=== PATIENT | female | born 1965 | race Caucasian/White ===

== ENCOUNTER → 2016-07-25 | Outpatient (CLI) | payer OTHER ==
--- NOTE | 2016-07-31 08:09 | SLEEPCENT ---
DATE OF PROCEDURE: 07/25/2016 REQUESTING PROVIDER: Fartun Antunez NP INTERPRETATION: Nocturnal polysomnography was performed due to concern for obstructive sleep apnea syndrome in this patient with a history of sleep fragmentation and nonrestorative sleep. 7 hours and 11 minutes of data were reviewed. There were 297 minutes of sleep identified. Sleep latency was prolonged at 34 minutes. Rapid eye movement (REM) latency was prolonged at 125 minutes. Sleep architecture was fair with three REM periods appreciated. Overall sleep efficiency was 71.3%. There was a mild reduction in REM time. The patient's electrocardiogram (EKG) showed a sinus rhythm with an average heart rate of 70 beats per minute. Electroencephalogram (EEG) showed reasonably normal waveforms for awake and sleep. There were 98 respiratory events identified of 10 seconds in duration or greater for an apnea-hypopnea index of 19.8. The events were primarily obstructive, not exclusive to sleep stage, though REM clustering was appreciated and not exclusive to sleep position. Arousals from respiratory events occurred 9.9 times per hour. There was some limb activity. Limb movement arousal index was 4.8. The remaining measures of sleep physiology were normal. IMPRESSION: Obstructive sleep apnea syndrome (G47.33). Apnea-hypopnea index of 19.8. RECOMMENDATIONS: The patient should be encouraged to return to the sleep disorder center for pressure therapy. In the interim, alcohol and sedative avoidance should be practiced and caution exercised during the operation of motor vehicles.
== END | disposition home or self-care (01) ==
LOC: M SLEEP 19:32
PROVIDERS: ATTEND Nurse Practitioner Adult Health
DX: G47.33 Obstructive sleep apnea (adult) (pediatric) (principal)

== ENCOUNTER → 2016-08-13 | Outpatient (CLI) | payer OTHER, SELFPAY ==
[~2016-08-13] MED LIST: METHACHOLINE KIT (J7674) INH ONE
--- NOTE | 2016-08-13 12:04 | PFTRPT ---
INTERPRETATION: The study was of excellent technical quality. Under protocol, methacholine was administered. At a dose of 10 mg (63.875 CDUs), a 44% decline in the FEV1 was noted. The PC20 of 3.09 is felt to be significant. Flow rates did return to baseline post bronchodilator administration. IMPRESSION: Positive methacholine challenge study. MTDD
== END ==
LOC: M CARPUL 07:39
PROVIDERS: ATTEND Nurse Practitioner Adult Health
DX: R05 Cough (principal); R94.2 Abnormal results of pulmonary function studies

== ENCOUNTER → 2016-11-19 | Outpatient (CLI) | payer OTHER ==
--- NOTE | 2016-11-19 18:11 | REP ---
BILATERAL MAMMOGRAM WITH DIAGNOSTIC MAMMOGRAM LEFT BREAST AND LEFT BREAST ULTRASOUND: Bilateral mammogram is performed in the MLO and CC projections. Additional spot compression views are obtained in the region of the upper outer quadrant of the left breast in this patient with a history of a lump with pain. The area is marked on the skin with a triangular marker. There are no prior mammograms for comparison. There is moderately dense fibroglandular tissue present bilaterally in a relatively symmetrical pattern. I see no mammographic evidence of a mass or significant architectural distortion. No clustered microcalcifications are seen. Real-time sonographic evaluation of the upper outer quadrant of the left breast is performed. Dense fibroglandular tissue is seen without evidence of a cystic or solid mass sonographically. IMPRESSION: ACR 2 benign. Moderately dense breast parenchyma bilaterally. There is no mammographic or sonographic evidence of a mass at the site the reported palpable abnormality in the upper outer quadrant of the left breast. Clinical correlation and followup recommended. A negative mammogram and ultrasound should not deter biopsy if there is a clinically suspicious palpable mass present. Recommend followup mammogram in one year. BI-RADS/ACR category 2 mammogram. Benign finding(s). Routine annual screening mammography (for women over age 40). This mammogram was interpreted with the aid of an FDA-approved computer-aided detection system. The patient states she/he had a clinical breast exam in 11/2016. The patient letter being requested is M2. Signed by Terrell Sow MD 11/20/2016 07:42 P
== END ==
LOC: M RAD 13:27
PROVIDERS: ATTEND Family Medicine
DX: N63 Unspecified lump in breast (principal)
CPT/HCPCS: 76642; G0204

== ENCOUNTER 2016-12-10 18:33 | Inpatient (IN) | payer OTHER ==
[~2016-12-10] VITALS: Ht 160 cm; Wt 94.9 kg
[2016-12-10 20:44] LABS: MEAN CORPUSCULAR HEMOGLOBIN 31.7 pg (27.0-33.0); MEAN CORPUSCULAR HGB CONC 33.1 g/dl (32.0-36.5); MEAN CORPUSCULAR VOLUME 95.9 fl (80.0-96.0); RED CELL DISTRIBUTION WIDTH 12.8 % (11.5-14.5); WHITE BLOOD COUNT 7.8 K/mm3 (4.0-10.0)
[2016-12-10 21:04] LABS: METHADONE URINE NEGATIVE (NEGATIVE)
[2016-12-10 21:14] LABS: ALBUMIN 3.7 GM/DL (3.2-5.2); ALBUMIN/GLOBULIN RATIO 0.95 (1.00-1.93); ALKALINE PHOSPHATASE 95 U/L (45-117); ALT/SGPT 26 U/L (12-78); ANION GAP 7 MEQ/L (8-16); AST/SGOT 16 U/L (15-37); BILIRUBIN,DIRECT 0.1 MG/DL (0.0-0.2); BILIRUBIN,TOTAL 0.5 MG/DL (0.2-1.0); BLOOD UREA NITROGEN 8 MG/DL (7-18); CALCIUM LEVEL 8.4 MG/DL (8.5-10.1); CARBON DIOXIDE LEVEL 27 MEQ/L (21-32); CHLORIDE LEVEL 105 MEQ/L (98-107); CREATININE FOR GFR 0.81 MG/DL (0.55-1.02); GLOMERULAR FILTRATION RATE > 60.0 (>51); GLUCOSE, FASTING 111 MG/DL (70-105); POTASSIUM SERUM 4.1 MEQ/L (3.5-5.1); SODIUM LEVEL 139 MEQ/L (136-145); TOTAL PROTEIN 7.6 GM/DL (6.4-8.2)
[2016-12-10] MEDS ORDERED: ALBU17IN INH (21:28)
[2016-12-11] MEDS ORDERED: MOM 30ML SUSPENSION UDC PO PRN
[2016-12-11] MEDS ORDERED: MAALOX 30 ML SUSP *UDC PO PRN
[2016-12-11] MEDS ORDERED: traZODone 50 MG TAB PO PRN
[2016-12-11 01:20] VITALS: BP 172/95
[2016-12-11 07:11] VITALS: BP 116/82
[2016-12-11] MEDS ORDERED: chlordiazePOXIDE 25 MG CAP PO PRN (15:45)
[2016-12-11] MEDS: VENLAFAXINE **XR** 37.5 MG CAPSULE PO SCH (16:19)
[2016-12-11] MEDS: ALBUTEROL 90 MCG/ACT 8GM HFA INHALER INH PRN (20:28)
[2016-12-11] MEDS: traZODone 100 MG TAB PO SCH (21:40)
[2016-12-11] MEDS ORDERED: ONDANSETRON 4 MG ORAL DISINTEGRATING TAB (S0181) SL PRN (22:15)
[2016-12-12 06:25] VITALS: BP 112/62
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
[2016-12-12] MEDS: VENLAFAXINE **XR** 37.5 MG CAPSULE PO SCH (10:06)
--- NOTE | 2016-12-12 10:10 | HPE ---
DATE OF ADMISSION: 12/10/2016 HISTORY OF PRESENT ILLNESS: Please refer to psychiatric history and evaluation for further details on this admission. This examination and history is intended for medical issues, which may need treatment, followup or consultation on this 51-year-old female. ALLERGIES: None. PRIMARY CARE PROVIDER: Dr. Oro SOCIAL HISTORY: She is . EtOH: She states that she has drank none since July and then the last three days she started drinking and having stress over rent, job, work, her landlord. Smokes none. Recreational drug use is none. PAST MEDICAL HISTORY: Asthma. PAST SURGICAL HISTORY: Three sections, eyelid surgery, right scleroplasty, right cornea transplant, LASIK PRK right eye, right cataract removal. HOME MEDICATIONS: - albuterol - Ventolin HFA two puffs by mouth four times a day as needed for shortness of breath or wheeze LABORATORY DATA: CBC normal. Electrolytes were normal. BUN and creatinine were 8 and 0.81, nonfasting glucose 111, calcium 8.4, ETOH was 0.082. REVIEW OF SYSTEMS: Ten-systems review was done. The patient was complaining of some slight nausea after starting a medication earlier today. No vomiting. Eating and drinking without difficulty. She states that she felt a little wheezy earlier. She took albuterol inhaler and is improved. No other complaints. PHYSICAL EXAMINATION: GENERAL: 51-year-old cooperative female in no acute distress. Height 63 inches , weight 94.9 kg, Body Mass Index (BMI) 37.1, blood pressure 116/82, pulse 85, respirations 16, temperature 98. The patient is alert and oriented times three. HEENT: Pupils are equal and reactive to light. Extraocular muscles intact. Sclerae clear. Conjunctivae normal. No facial asymmetry. Pharynx, gums and tongue pink and moist. Tongue is midline. NECK: Supple without lymphadenopathy, thyromegaly or goiter. CHEST: Clear to auscultation without wheeze or retraction. HEART: Regular. ABDOMEN: Benign. Bowel sounds positive. GENITOURINARY/RECTAL: Not done. EXTREMITIES: Equal strength, full range of motion. No clubbing, cyanosis, and edema. Peripheral pulses equal and palpable bilaterally. SKIN: Warm and dry. IMPRESSION/PLAN: 1. Psychiatric plan per psychiatry. 2. History of asthma. No current wheezing. Stated earlier, she used the albuterol inhaler with good response. 3. Complained of nausea. We will order Zofran 4 mg by mouth sublingually every 6 hours as needed for nausea. Notify staff if the nausea persists or if vomiting occurs. The patient is to notify staff if she has any wheezing or further shortness of breath. The patient verbalized agreement and understanding. CHRIS
--- NOTE | 2016-12-12 16:18 | IPN ---
DATE: 12/12/2016 51-year-old female admitted for depression and suicidal ideation. Patient had significant stressors, was very labile, tearful, with sad, restricted facial expression and psychomotor retardation. SUBJECTIVE: "I don't want to get out of my room." OBJECTIVE: No major changes from yesterday. Patient continues very depressed, labile, tearful. Patient says that it is very stressful to be in the unit. Patient does not feel like getting out of the room interacting with other patients or participating in group psychotherapy. I discussed the plan with the patient. MENTAL STATUS EXAMINATION: Patient is dressed in [facility]. Patient is anxious, depressed, tearful, with very poor eye contact. Affect is labile. No evidence of delusions or hallucinations. Memory, attention, and concentration are impaired. Patient reports suicidal ideation. Patient states that she was thinking about tampering with the electric of the speaker but then she was able to contract for safety and tells me if any of the suicidal thoughts return she will be calling staff and tell me. Insight and judgment is poor. ASSESSMENT: 1. Depression. 2. Suicidal ideation. 3. Alcohol abuse. PLAN: 1. Trazodone 200 mg by mouth nightly. 2. Increase Effexor to 75 mg by mouth every morning. 3. Continue Librium as needed. Patient has not needed this medication. 4. Continue medication management, individual and group therapy.
[2016-12-12] MEDS: traZODone 100 MG TAB PO SCH (22:37)
[2016-12-12] MEDS: ALBUTEROL 90 MCG/ACT 8GM HFA INHALER INH PRN (22:38)
[2016-12-13 06:16] VITALS: BP 140/65
[2016-12-13] MEDS: VENLAFAXINE **XR** 75MG CAPSULE PO SCH (09:09)
[2016-12-13] MEDS: ACETAMINOPHEN TAB 650MG DOSE (2X325MG) PO PRN ×2 (09:11→20:59)
[2016-12-13 18:00] VITALS: BP 123/77
[2016-12-13] MEDS: ALBUTEROL 90 MCG/ACT 8GM HFA INHALER INH PRN (20:59)
[2016-12-13] MEDS: traZODone 100 MG TAB PO SCH (20:59)
--- NOTE | 2016-12-13 22:58 | IPN ---
DATE: 12/13/2016 51-year-old female admitted for depression and suicidal ideation. The patient had significant stressors and was very labile, tearful, sad, restricted facial expression and psychomotor retardation. SUBJECTIVE: "I could not sleep last night." OBJECTIVE: The patient continues very depressed, labile with sad, restricted facial expression. Psychomotor retardation. No interaction with other patients and staff. Has very poor appetite. She is staying in her room most of the time. The patient is able to contract for safety during the interview. MENTAL STATUS EXAMINATION: The patient is dressed in [facility]. The patient is depressed, anxious, tearful, labile with very poor eye contact. No delusions or hallucinations. Memory, attention, and concentration are fair. The patient reports intermittent suicidal ideation. Insight and judgment poor. ASSESSMENT: 1. Depression. 2. Suicidal ideation. 3. Alcohol abuse. PLAN: 1. Continue with trazodone 200 mg by mouth at night. 2. Start Librium 20 mg by mouth at night three times a day since the patient has a problem with alcohol and maybe has some hyperactivity that prevents her from staying asleep. The patient has not needed Librium as needed during the daily. 3. Continue Effexor XR 75 mg by mouth in the morning. 4. Continue medication management, individual and group therapy.
[2016-12-14] MEDS ORDERED: OLANZapine ORAL DISINTEGRATING TAB 5MG PO ONE (01:45)
[2016-12-14 06:35] VITALS: BP 124/62
[2016-12-14] MEDS: VENLAFAXINE **XR** 75MG CAPSULE PO SCH (08:57)
[2016-12-14 18:00] VITALS: BP 127/72
[2016-12-14] MEDS: ALBUTEROL 90 MCG/ACT 8GM HFA INHALER INH PRN (20:58)
[2016-12-14] MEDS: ACETAMINOPHEN TAB 650MG DOSE (2X325MG) PO PRN (20:58)
[2016-12-14] MEDS ORDERED: QUEtiapine FUMARATE 50 MG TAB PO SCH (21:00)
[2016-12-15 06:35] VITALS: BP 128/76
[2016-12-15] MEDS: VENLAFAXINE **XR** 75MG CAPSULE PO SCH (08:58)
[2016-12-15] MEDS: ACETAMINOPHEN TAB 650MG DOSE (2X325MG) PO PRN (09:00)
--- NOTE | 2016-12-15 14:57 | IPN ---
DATE: 12/14/2016 The patient states she is very depressed. Her mood is 10 out of 10 where the closer to 10 is the most depressed. She is feeling hopeless. She is denying that she is suicidal. She says she has never been this depressed. MENTAL STATUS EXAMINATION: She is alert and oriented times three. Eye contact is fair. Psychomotor activity is decreased. She looked as if she had just been crying. There is no formal thought disorder noted. Mood is very depressed. Affect full range and appropriate. She is not psychotic, suicidal or homicidal. Concentration is fair. Memory intact. DIAGNOSIS: Major depressive disorder, single episode, severe. TREATMENT PLAN: At this point, the patient is saying she could not sleep much last night. That was despite the fact that she took 200 mg of trazodone and she is already on Ativan 1 mg three times a day for anxiety and Librium 30 mg. The patient clarifies that she only drank for three days and so she does not seem to need any medications for withdrawal, so I will discontinue the Librium. We discussed that she needs to give the Effexor some more time for a clinical response and this may have be adjusted at some point. MARSHAD
[2016-12-15] MEDS ORDERED: QUEtiapine FUMARATE 25 MG TAB PO SCH (21:00)
--- NOTE | 2016-12-16 03:28 | IPN ---
DATE OF SERVICE: 12/15/2016 The patient today was lying in bed. She states that she continues to feel very depressed. She says she slept slightly better, about 4 hours, but this is still not baseline. She is denying suicidal ideations. MENTAL STATUS EXAMINATION: This patient is alert and oriented times three. Eye contact is fair. Psychomotor activity is decreased. She is verbally spontaneous. There is no formal thought disorder noted. Mood is very depressed. Affect is full range and appropriate. She is not psychotic, suicidal, homicidal. Concentration is fair. Memory is intact. Insight and judgment is poor. DIAGNOSES: 1. Major depressive disorder. 2. Rule out posttraumatic stress disorder. 3. Rule out alcohol use disorder. TREATMENT PLAN: At this point, the patient will continue to be monitored for continued resolution of suicidal ideations and for further stabilization of her mood. She continues to be very depressed and anxious. I will increase her Effexor XR to 112.5 mg daily. Also, for her complaint of ongoing insomnia, I would increase the Seroquel to 75 mg nightly.
[2016-12-16 06:52] VITALS: BP 120/69
[2016-12-16] MEDS: ALBUTEROL 90 MCG/ACT 8GM HFA INHALER INH PRN (08:30)
[2016-12-16] MEDS: VENLAFAXINE **XR** 75MG CAPSULE PO SCH (08:30)
[2016-12-16] MEDS: VENLAFAXINE **XR** 37.5 MG CAPSULE PO SCH (08:30)
--- NOTE | 2016-12-16 16:16 | IPN ---
DATE: 12/16/2016 VITAL SIGNS: Temperature 98.2, pulse 64, respirations 20, blood pressure 140/65. HISTORY OF PRESENT ILLNESS: 51-year-old white female living with her children. The patient was admitted on December 10 under the care of Dr. Jaquez. The patient was depressed at the time and suicidal. She was admitted on a 9.39 basis. The patient had been drinking episodically. The patient had been weepy. She has multiple stressors. She has a school bill of $89,000. She just got her MANISH. Her ex- who is major financial support just lost his job. She witnessed the dog from the neighbor upstairs falling out of the window and dying. That was traumatizing. She is being evicted from her apartment. The patient was placed on Effexor in gradually increasing doses. She tolerated the Effexor well was starting to improve. She is able to function better. She is not feeling as tired or fatigued. She feels more logical about the future. She feels more positive and motivated to spend time with her children, the sports and various hobbies. She has plans to move down to [facility] to get a job. She does have a history of chronic insomnia. She has a CPAP device, but does not want to use it on the unit. She was given Seroquel and trazodone here without any effect. The patient would like a sleeper. We discussed a trial on clonidine. Risks, benefit, profile thoroughly reviewed. She is warned about potential hypotensive side effects. The patient is satisfied with the Effexor. MENTAL STATUS EXAM: Affect apparently is brighter. She has good eye contact. The patient less depressed. Not voicing any suicidal thoughts or ideation. Insight and judgment appear reasonably good. She is not homicidal. She is not suicidal. No signs of organicity. Grooming and hygiene appears good. The patient not hearing voices. No signs of paranoia or thought disorder. ASSESSMENT: Major depression. Alcohol use disorder. PLAN: Add clonidine 0.1 mg by mouth at bedtime and followup in hospital milieu. Start to work on discharge planning.
[2016-12-16 18:00] VITALS: BP 125/69
[2016-12-16] MEDS ORDERED: cloNIDine 0.1 MG TAB PO SCH (21:00)
[2016-12-17 06:24] VITALS: BP 155/88
[2016-12-17] MEDS: ALBUTEROL 90 MCG/ACT 8GM HFA INHALER INH PRN ×2 (08:35→21:04)
[2016-12-17] MEDS: VENLAFAXINE **XR** 37.5 MG CAPSULE PO SCH (08:35)
[2016-12-17] MEDS: VENLAFAXINE **XR** 75MG CAPSULE PO SCH (08:35)
[2016-12-17] MEDS: LIDOCAINE 5% (LIDODERM) PATCH TD SCH (11:38)
--- NOTE | 2016-12-17 14:59 | REP ---
CERVICAL SPINE SERIES: Seven views. HISTORY: Pain. FINDINGS: Lateral views done in flexion/extension and neutral position show normal alignment. Vertebral body heights are preserved. No subluxation or instability is seen. There is degenerative narrowing in the C5-6 and C6-7 discs consistent with degenerative disc disease at these levels. There is discogenic spurring anteriorly and posteriorly at these two levels. These findings are unchanged from the comparison study of October 02, 2015. Open-mouth odontoid and AP views are unremarkable. Oblique images demonstrate mild uncovertebral spurring bilaterally at C5-6 and C6-7 which is also felt to be unchanged from the comparison radiographs. IMPRESSION: Degenerative spondylosis changes C5-6 and C6-7 radiographically stable from October 02, 2015 prior study. Signed by Allan Russell MD 12/17/2016 03:44 P
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
[2016-12-17 18:00] VITALS: BP 139/86
[2016-12-17] MEDS: **NOTE PATIENT COMMENT** MISC XX SCH (21:00)
[2016-12-17] MEDS: cloNIDine 0.2 MG TAB PO SCH (21:03)
[2016-12-17] MEDS: ACETAMINOPHEN TAB 650MG DOSE (2X325MG) PO PRN (21:48)
[2016-12-18 06:17] VITALS: BP 148/94
[2016-12-18] MEDS: ALBUTEROL 90 MCG/ACT 8GM HFA INHALER INH PRN (09:15)
[2016-12-18] MEDS: VENLAFAXINE **XR** 37.5 MG CAPSULE PO SCH (09:15)
[2016-12-18] MEDS: LIDOCAINE 5% (LIDODERM) PATCH TD SCH (09:15)
[2016-12-18] MEDS: VENLAFAXINE **XR** 75MG CAPSULE PO SCH (09:15)
[2016-12-18 18:00] VITALS: BP 130/65
[2016-12-18] MEDS: **NOTE PATIENT COMMENT** MISC XX SCH (20:06)
[2016-12-18 22:14] VITALS: BP 124/64
[2016-12-18] MEDS: cloNIDine 0.2 MG TAB PO SCH (22:14)
[2016-12-19 07:06] VITALS: BP 144/71
[2016-12-19] MEDS: VENLAFAXINE **XR** 75MG CAPSULE PO SCH (07:59)
[2016-12-19] MEDS: ALBUTEROL 90 MCG/ACT 8GM HFA INHALER INH PRN (08:00)
[2016-12-19] MEDS: VENLAFAXINE **XR** 37.5 MG CAPSULE PO SCH (08:00)
[2016-12-19] MEDS ORDERED: VENL150C43 PO (08:37)
[2016-12-19] MEDS ORDERED: CATA0.2T PO (08:37)
[2016-12-19] MEDS ORDERED: LIDO5TD TD (08:37)
[2016-12-19] MEDS: LIDOCAINE 5% (LIDODERM) PATCH TD SCH (08:49)
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
== END 2016-12-19 12:15 | disposition home or self-care (01) | DRG 751 ==
LOC: M ED 18:33 → M ED INP 23:50 → M PSY 12-11 01:13
PROVIDERS: ADMIT Psychiatry & Neurology Psychiatry; ATTEND Psychiatry & Neurology Psychiatry
DX: F33.1 Major depressive disorder, recurrent, moderate (principal); F41.9 Anxiety disorder, unspecified; F10.259 Alcohol dependence with alcohol-induced psychotic disorder, unspecified; F43.10 Post-traumatic stress disorder, unspecified; G47.00 Insomnia, unspecified; F10.239 Alcohol dependence with withdrawal, unspecified; J45.909 Unspecified asthma, uncomplicated; Z62.810 Personal history of physical and sexual abuse in childhood; Z62.811 Personal history of psychological abuse in childhood; Z91.410 Personal history of adult physical and sexual abuse; Z79.51 Long term (current) use of inhaled steroids; Z59.9 Problem related to housing and economic circumstances, unspecified

== ENCOUNTER → 2017-07-09 | Outpatient (REF) | payer OTHER ==
[2017-07-09 20:06] LABS: FREE T3 2.9 PG/ML (2.2-4.0); FREE T4 0.84 NG/DL (0.76-1.46)
== END ==
LOC: M LAB REF 19:04
DX: E07.9 Disorder of thyroid, unspecified (principal)

== ENCOUNTER 2018-04-21 21:26 | Inpatient (IN) | payer OTHER, MEDICAID, SELFPAY ==
[2018-04-21 22:02] LABS: BASO # 0.1 10^3/uL (0.0-0.2); BASO % 0.6 % (0.0-1.0); EOS # 0.1 10^3/uL (0.0-0.50); EOS % 1.5 % (0.0-3.0); HEMATOCRIT 37.8 % (36.0-47.0); HEMOGLOBIN 12.7 g/dl (12.0-15.5); IMMATURE GRANULOCYTE % 0.3 % (0-3.0); LYMPH # 3.1 10^3/uL (1.5-4.5); LYMPH % 40.2 % (24.0-44.0); MEAN CORPUSCULAR HEMOGLOBIN 29.7 pg (27.0-33.0); MEAN CORPUSCULAR HGB CONC 33.6 g/dl (32.0-36.5); MEAN CORPUSCULAR VOLUME 88.3 fl (80.0-96.0); MONO # 0.4 10^3/uL (0.0-0.8); NEUTROPHILS # 4.1 10^3/uL (1.8-7.7); NEUTROPHILS % 52.4 % (36.0-66.0); PLATELET COUNT, AUTOMATED 315 10^3/uL (150-450); RED BLOOD COUNT 4.28 10^6/uL (4.00-5.40); RED CELL DISTRIBUTION WIDTH 12.8 % (11.5-14.5); WHITE BLOOD COUNT 7.8 10^3/uL (4.0-10.0)
[2018-04-21] MEDS: NS 1,000 ML IV ×2 (22:15)
[2018-04-21 22:24] LABS: CONTROL LINE HCG INT CTR LINE PRESENT; HCG, SERUM QUALITATIVE NEGATIVE (NEGATIVE)
[2018-04-21 22:41] LABS: ACETAMINOPHEN LEVEL < 2.0 UG/ML (10.0-30.0); ALBUMIN 3.4 GM/DL (3.2-5.2); ALBUMIN/GLOBULIN RATIO 0.94 (1.00-1.93); ALKALINE PHOSPHATASE 98 U/L (45-117); ALT/SGPT 27 U/L (12-78); ANION GAP 9 MEQ/L (8-16); AST/SGOT 15 U/L (7-37); BILIRUBIN,DIRECT < 0.1 MG/DL (0.0-0.2); BILIRUBIN,TOTAL 0.4 MG/DL (0.2-1.0); BLOOD UREA NITROGEN 12 MG/DL (7-18); CALCIUM LEVEL 8.9 MG/DL (8.5-10.1); CARBON DIOXIDE LEVEL 26 MEQ/L (21-32); CHLORIDE LEVEL 105 MEQ/L (98-107); CPK CREATINE PHOSPHOKINASE 98 U/L (26-192); CREATININE FOR GFR 0.86 MG/DL (0.55-1.30); ETHYL ALCOHOL (ETHANOL) 0.194 % (0.000-0.010); GLOMERULAR FILTRATION RATE > 60.0 (>51); GLUCOSE, FASTING 97 MG/DL (70-100); POTASSIUM SERUM 3.6 MEQ/L (3.5-5.1); SALICYLATE LEVEL < 1.7 MG/DL (5.0-30.0); SODIUM LEVEL 140 MEQ/L (136-145)
[2018-04-22 00:05] LABS: LITHIUM LEVEL 1.99 MEQ/L (0.60-1.20)
[2018-04-22 00:33] LABS: AMPHETAMINES LEVEL URINE NEGATIVE (NEGATIVE); BARBITURATES URINE NEGATIVE (NEGATIVE); BENZODIAZEPINES URINE NEGATIVE (NEGATIVE); CANNABINOIDS URINE NEGATIVE (NEGATIVE); COCAINE METABOLITE URINE NEGATIVE (NEGATIVE); METHADONE URINE NEGATIVE (NEGATIVE); OPIATES URINE NEGATIVE (NEGATIVE); PHENCYCLIDINE URINE NEGATIVE (NEGATIVE)
[2018-04-22 01:15] LABS: LITHIUM LEVEL 2.15 MEQ/L (0.60-1.20)
[2018-04-22] MEDS: ONDANSETRON 4MG/2ML VIAL (J2405) IV (02:05)
[2018-04-22 02:17] LABS: LITHIUM LEVEL 2.37 MEQ/L (0.60-1.20)
[2018-04-22] MEDS: NS 1,000 ML IV ×4 (04:55→23:27)
[2018-04-22 06:12] LABS: ANION GAP 4 MEQ/L (8-16); BLOOD UREA NITROGEN 9 MG/DL (7-18); CALCIUM LEVEL 8.2 MG/DL (8.5-10.1); CARBON DIOXIDE LEVEL 31 MEQ/L (21-32); CHLORIDE LEVEL 105 MEQ/L (98-107); CREATININE FOR GFR 0.66 MG/DL (0.55-1.30); GLOMERULAR FILTRATION RATE > 60.0 (>51); GLUCOSE, FASTING 82 MG/DL (70-100); LITHIUM LEVEL 2.06 MEQ/L (0.60-1.20); POTASSIUM SERUM 3.7 MEQ/L (3.5-5.1); SODIUM LEVEL 140 MEQ/L (136-145)
[2018-04-22] MEDS: PANTOPRAZOLE 40MG TAB (PROTONIX) PO (11:08)
[2018-04-22 13:02] LABS: LITHIUM LEVEL 1.32 MEQ/L (0.60-1.20)
[2018-04-22 18:32] LABS: LITHIUM LEVEL 0.97 MEQ/L (0.60-1.20)
[2018-04-22] MEDS: RAMELTEON 8 MG TAB (ROZEREM) PO (23:27)
[2018-04-23 02:25] LABS: LITHIUM LEVEL 0.67 MEQ/L (0.60-1.20)
[2018-04-23 06:24] LABS: BASO % 0.3 % (0.0-1.0); EOS # 0.2 10^3/uL (0.0-0.50); HEMATOCRIT 34.8 % (36.0-47.0); HEMOGLOBIN 11.2 g/dl (12.0-15.5); IMMATURE GRANULOCYTE % 0.3 % (0-3.0); LYMPH # 2.9 10^3/uL (1.5-4.5); LYMPH % 32.6 % (24.0-44.0); MEAN CORPUSCULAR HEMOGLOBIN 29.6 pg (27.0-33.0); MEAN CORPUSCULAR HGB CONC 32.2 g/dl (32.0-36.5); MEAN CORPUSCULAR VOLUME 92.1 fl (80.0-96.0); MONO # 0.5 10^3/uL (0.0-0.8); NEUTROPHILS # 5.4 10^3/uL (1.8-7.7); NEUTROPHILS % 59.8 % (36.0-66.0); PLATELET COUNT, AUTOMATED 286 10^3/uL (150-450); RED BLOOD COUNT 3.78 10^6/uL (4.00-5.40); RED CELL DISTRIBUTION WIDTH 13.1 % (11.5-14.5)
[2018-04-23 07:31] LABS: ANION GAP 6 MEQ/L (8-16); BLOOD UREA NITROGEN 9 MG/DL (7-18); CALCIUM LEVEL 8.3 MG/DL (8.5-10.1); CARBON DIOXIDE LEVEL 27 MEQ/L (21-32); CHLORIDE LEVEL 108 MEQ/L (98-107); CREATININE FOR GFR 0.76 MG/DL (0.55-1.30); GLOMERULAR FILTRATION RATE > 60.0 (>51); GLUCOSE, FASTING 125 MG/DL (70-100); LITHIUM LEVEL 0.53 MEQ/L (0.60-1.20); MAGNESIUM LEVEL 2.1 MG/DL (1.8-2.4); POTASSIUM SERUM 3.5 MEQ/L (3.5-5.1); SODIUM LEVEL 141 MEQ/L (136-145)
[2018-04-23] MEDS: NS 1,000 ML IV ×2 (07:35→14:15)
[2018-04-23] MEDS: PANTOPRAZOLE 40MG TAB (PROTONIX) PO (09:00)
[2018-04-23 13:03] LABS: LITHIUM LEVEL 0.45 MEQ/L (0.60-1.20)
[2018-04-23] MEDS ORDERED: ALBUTEROL SULFATE 2.5 MG/0.5 ML INH NEB SOLN INH ×2 (15:00→16:00)
[2018-04-23 18:56] LABS: LITHIUM LEVEL 0.38 MEQ/L (0.60-1.20)
[2018-04-23] MEDS: ALBUTEROL 90 MCG/ACT 8GM HFA INHALER INH (21:09)
[2018-04-23] MEDS: RAMELTEON 8 MG TAB (ROZEREM) PO (21:32)
== END 2018-04-23 21:53 | DRG 918 ==
LOC: M ED 21:26 → M ED INP 21:27 → M MSPAV 04-22 13:40
PROVIDERS: Hospitalist
DX: T43.592A Poisoning by other antipsychotics and neuroleptics, intentional self-harm, initial encounter (principal); F32.9 Major depressive disorder, single episode, unspecified; J45.909 Unspecified asthma, uncomplicated; F17.210 Nicotine dependence, cigarettes, uncomplicated; D64.9 Anemia, unspecified; F10.10 Alcohol abuse, uncomplicated; F43.10 Post-traumatic stress disorder, unspecified; Z79.899 Other long term (current) drug therapy; Y92.009 Unspecified place in unspecified non-institutional (private) residence as the place of occurrence of the external cause

== ENCOUNTER 2018-04-23 21:52 | Inpatient (IN) | payer OTHER, MEDICAID ==
[2018-04-23] MEDS: RAMELTEON 8 MG TAB (ROZEREM) PO (21:00)
[~2018-04-23 21:52] MED LIST changes: +ACETAMINOPHEN TAB 650MG DOSE (2X325MG) PO; +MAALOX 30 ML SUSP *UDC PO; -METHACHOLINE KIT (J7674) INH ONE; +MOM 30ML SUSPENSION UDC PO; +OLANZapine ORAL DISINTEGRATING TAB 5MG PO; +OXAZEPAM 15 MG CAP PO; +traZODone 50 MG TAB PO
[2018-04-24] MEDS: ALBUTEROL 90 MCG/ACT 8GM HFA INHALER INH ×2 (07:44→21:14)
[2018-04-24] MEDS ORDERED: ALBUTEROL SULFATE 2.5 MG/0.5 ML INH NEB SOLN INH (09:30)
[2018-04-24] MEDS: MONTELUKAST 10 MG TAB PO (09:36)
[2018-04-24] MEDS: RAMELTEON 8 MG TAB (ROZEREM) PO (21:13)
[2018-04-25 07:59] LABS: FREE T4 1.06 NG/DL (0.76-1.46)
[2018-04-25] MEDS: ALBUTEROL 90 MCG/ACT 8GM HFA INHALER INH ×2 (08:15→21:41)
[2018-04-25] MEDS: MONTELUKAST 10 MG TAB PO (08:16)
[2018-04-25] MEDS: MIRTAZAPINE 15 MG TAB PO (21:38)
[2018-04-25] MEDS: buPROPion 100 MG TAB PO (21:38)
[2018-04-26] MEDS: buPROPion 100 MG TAB PO ×2 (09:32→20:44)
[2018-04-26] MEDS: MONTELUKAST 10 MG TAB PO (09:32)
[2018-04-26] MEDS: ALBUTEROL 90 MCG/ACT 8GM HFA INHALER INH ×2 (09:33→20:45)
[2018-04-26] MEDS: MIRTAZAPINE 15 MG TAB PO (20:44)
[2018-04-27] MEDS: buPROPion 100 MG TAB PO (08:14)
[2018-04-27] MEDS: ALBUTEROL 90 MCG/ACT 8GM HFA INHALER INH (08:14)
[2018-04-27] MEDS: MONTELUKAST 10 MG TAB PO (08:14)
[2018-04-27] MEDS ORDERED: buPROPion (WELLBUTRIN SR) 100 MG SR TAB PO (21:00)
[2018-04-27] MEDS ORDERED: buPROPion 100 MG TAB PO (21:00)
== END 2018-04-27 13:25 | disposition home or self-care (01) | DRG 885 ==
LOC: M PSY 21:52
PROVIDERS: Psychiatry & Neurology Psychiatry
DX: F33.9 Major depressive disorder, recurrent, unspecified (principal); F10.10 Alcohol abuse, uncomplicated; F43.10 Post-traumatic stress disorder, unspecified; Z79.82 Long term (current) use of aspirin; Z79.899 Other long term (current) drug therapy; J45.909 Unspecified asthma, uncomplicated

== ENCOUNTER 2018-12-14 23:20 | Emergency (ER) | payer MEDICAID, OTHER ==
[~2018-12-14] VITALS: Ht 160 cm; Wt 87.7 kg
[~2018-12-14 23:20] MED LIST changes: -ACETAMINOPHEN TAB 650MG DOSE (2X325MG) PO; +ALBU17IN INH; +ALBU83IN INH; +ASPI1TAB15 PO; +BUPR10TASR PO; +BUPR300T34 PO; +CATA0.2T PO; +LIDO5TD TD; -MAALOX 30 ML SUSP *UDC PO; +MIRT15TA3 PO; -MOM 30ML SUSPENSION UDC PO; +MONT10TA2 PO; -OLANZapine ORAL DISINTEGRATING TAB 5MG PO; -OXAZEPAM 15 MG CAP PO; +PANT40TA3 PO; +VENL150C43 PO; +VENTAER INH; +[UNRECOGNIZED DRUG - CODE] PO; -traZODone 50 MG TAB PO
[2018-12-14] MEDS ORDERED: CVS10CAP8 PO (23:37)
[2018-12-14] MEDS ORDERED: NAPR220C14 PO (23:46)
--- NOTE | 2018-12-15 | ECGEPIP ---
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
[2018-12-15 00:37] LABS: BASO # 0.1 10^3/uL (0.0-0.2); BASO % 0.6 % (0.0-1.0); EOS # 0.1 10^3/uL (0.0-0.50); HEMATOCRIT 38.6 % (36.0-47.0); HEMOGLOBIN 13.1 g/dl (12.0-15.5); LYMPH # 2.8 10^3/uL (1.5-4.5); LYMPH % 36.2 % (24.0-44.0); MEAN CORPUSCULAR HGB CONC 33.9 g/dl (32.0-36.5); MEAN CORPUSCULAR VOLUME 85.6 fl (80.0-96.0); MONO # 0.5 10^3/uL (0.0-0.8); NEUTROPHILS # 4.3 10^3/uL (1.8-7.7); NEUTROPHILS % 54.9 % (36.0-66.0); PLATELET COUNT, AUTOMATED 263 10^3/uL (150-450); RED BLOOD COUNT 4.51 10^6/uL (4.00-5.40); WHITE BLOOD COUNT 7.8 10^3/uL (4.0-10.0)
[2018-12-15 01:09] LABS: ALBUMIN 3.5 GM/DL (3.2-5.2); ALT/SGPT 30 U/L (12-78); BILIRUBIN,DIRECT 0.3 MG/DL (0.0-0.2); BILIRUBIN,TOTAL 1.2 MG/DL (0.2-1.0); BLOOD UREA NITROGEN 13 MG/DL (7-18); CALCIUM LEVEL 8.1 MG/DL (8.5-10.1); CARBON DIOXIDE LEVEL 27 MEQ/L (21-32); CHLORIDE LEVEL 101 MEQ/L (98-107); CK-MB VALUE MASS 1.5 NG/ML (<3.6); CPK CREATINE PHOSPHOKINASE 133 U/L (26-192); CREATININE FOR GFR 1.01 MG/DL (0.55-1.30); GLOMERULAR FILTRATION RATE > 60.0 (>51); GLUCOSE, FASTING 140 MG/DL (70-100); LIPASE 141 U/L (73-393); MB/CK RELATIVE INDEX 1.13 (< OR =4); POTASSIUM SERUM 3.5 MEQ/L (3.5-5.1); SODIUM LEVEL 137 MEQ/L (136-145); TOTAL PROTEIN 7.2 GM/DL (6.4-8.2); TROPONIN I < 0.02 NG/ML (< 0.10)
--- NOTE | 2018-12-15 01:55 | REPVR ---
EXAM: CT Head Without Contrast EXAM DATE/TIME: 12/15/2018 12:59 AM CLINICAL HISTORY: 53 years old, female; Pain; Headache; Post-traumatic TECHNIQUE: Imaging protocol: Axial computed tomography images of the head without contrast. Radiation optimization: All CT scans at this facility use at least one of these dose optimization techniques: automated exposure control; mA and/or kV adjustment per patient size (includes targeted exams where dose is matched to clinical indication); or iterative reconstruction. COMPARISON: CT Head without contrast 01/31/2012 9:17 PM (The report from this study was not available for review at the time of this interpretation.) FINDINGS: Brain: There is no evidence for an acute large vessel territorial infarct, intracranial hemorrhage, mass, mass effect, or herniation. The cortical gyration pattern, basal ganglia, thalami, and cerebellum are normal in appearance. Brainstem: Unremarkable. Midline shift: There is no midline shift. Ventricles: Normal. No ventriculomegaly. Bones/joints: Unremarkable. No acute fracture. Sinuses: Visualized sinuses are unremarkable. No fluid levels. Mastoid air cells: Visualized mastoid air cells are well aerated. No mastoid effusion. Orbits: Incidental note is made of bilateral lens implants and a right scleral band. Soft tissues: Unremarkable. IMPRESSION: No CT evidence for an acute intracranial process. Electronically signed by: Charlie Han On 12/15/2018 01:54:40 AM
[2018-12-15 02:45] VITALS: BP 154/83
--- NOTE | 2018-12-15 09:44 | REP ---
Clinical: Acute chest pain . Comparison: None Findings: The mediastinum and cardiac silhouette are stable and within normal limits for portable technique. The lung spencer are clear without acute consolidation, effusion, or pneumothorax. Skeletal structures are intact. Impression: No acute cardiopulmonary process appreciated. Electronically Signed by Yoan Peguero MD 12/15/2018 09:36 A
== END 2018-12-15 03:07 | disposition home or self-care (01) ==
LOC: M ED 23:20
DX: F10.10 Alcohol abuse, uncomplicated (principal); F32.9 Major depressive disorder, single episode, unspecified; Z91.5 Personal history of self-harm